=== PATIENT | female | born 1955 | race Caucasian/White ===

== ENCOUNTER → 2017-05-24 | Outpatient (CLI) | payer BC, OTHER | END | disposition home or self-care (01) | LOC: CFH 13:28 | PROVIDERS: ATTEND Nurse Practitioner Primary Care | DX: A15.9 Respiratory tuberculosis unspecified (principal); E78.2 Mixed hyperlipidemia | CPT/HCPCS: 71020 ==

== ENCOUNTER 2017-10-15 14:29 | Emergency (ER) | payer BC, OTHER ==
[~2017-10-15] VITALS: Ht 154.9 cm; Wt 62.0 kg
[2017-10-15] MEDS ORDERED: GABA300C10 PO (15:10)
[2017-10-15] MEDS ORDERED: OXYC5CAP2 PO (15:10)
[2017-10-15] MEDS ORDERED: MORPHINE SULFATE 4 MG/ML, 1ML IVPush PRN (15:30)
[2017-10-15] MEDS ORDERED: ONDANSETRON 2MG/ML, 2ML IVPush ONE (15:30)
[2017-10-15] MEDS ORDERED: SODIUM CHLORIDE FLUSH 10ML SYR IVF ONE (15:30)
[2017-10-15 15:52] LABS: BASOPHILS # (AUTO) 0.06 x10^3/uL (0-0.1); BASOPHILS % (AUTO) 1 % (0-1); EOSINOPHILS # (AUTO) 0.21 x10^3/uL (0-0.4); EOSINOPHILS % (AUTO) 3 % (1-7); LYMPHOCYTES % (AUTO) 26 % (22-44); MD NO; MEAN CORPUSCULAR HEMOGLOBIN 29.8 pg (27.0-34.8); MEAN CORPUSCULAR HGB CONC 33.7 g/dL (32.4-35.8); MEAN CORPUSCULAR VOLUME 88.4 fL (80-100); MEAN PLATELET VOLUME 8.4 fL (7.4-10.4); MONOCYTES % (AUTO) 7 % (2-9); NEUTROPHILS # (AUTO) 4.38 x10^3/uL (1.8-6.8); NEUTROPHILS % (AUTO) 63 % (42-75); PLATELET COUNT 361 x10^3/uL (130-400); RED BLOOD COUNT 5.08 x10^6/uL (3.82-5.3); RED CELL DISTRIBUTION WIDTH 13.8 % (9.6-15.2)
[2017-10-15] MEDS ORDERED: ONDANSETRON 2MG/ML, 2ML ONE (15:59)
[2017-10-15] MEDS ORDERED: MORPHINE SULFATE 4 MG/ML, 1ML ONE (15:59)
[2017-10-15 16:03] LABS: ALANINE AMINOTRANSFERASE 50 U/L (12-78); ALBUMIN 4.2 g/dL (3.4-5.0); ANION GAP 11 mmol/L (5-15); CALCIUM 9.4 mg/dL (8.5-10.1); CHLORIDE 106 mmol/L (98-107); CREATININE 0.81 mg/dL (0.55-1.02)
[2017-10-15 16:06] LABS: ALKALINE PHOSPHATASE 115 U/L (45-117); BILIRUBIN,TOTAL 0.6 mg/dL (0.2-1.0); TOTAL PROTEIN 8.1 g/dL (6.4-8.2)
[2017-10-15 16:58] LABS: MICROSCOPIC AUTO
[2017-10-15 17:44] VITALS: BP 129/70
== END 2017-10-15 18:03 | disposition home or self-care (01) ==
LOC: ED 17:55
DX: R10.13 Epigastric pain (principal)
CPT/HCPCS: 36415; 76700; 80053; 81001; 83690; 85025; 96374; 96375; 99285; J2405

== ENCOUNTER 2018-05-14 11:43 | Emergency (ER) | payer BC, OTHER ==
[~2018-05-14] VITALS: Ht 149.9 cm; Wt 64.1 kg
[~2018-05-14 11:43] MED LIST: GABA300C10 PO; OXYC5CAP2 PO
[2018-05-14 12:37] LABS: BASOPHILS # (AUTO) 0.06 x10^3/uL (0-0.1); BASOPHILS % (AUTO) 1 % (0-1); EOSINOPHILS % (AUTO) 3 % (1-7); LYMPHOCYTES # (AUTO) 1.57 x10^3/uL (1-3.4); LYMPHOCYTES % (AUTO) 20 % (22-44); MD NO; MEAN CORPUSCULAR HEMOGLOBIN 29.7 pg (27.0-34.8); MEAN CORPUSCULAR HGB CONC 33.8 g/dL (32.4-35.8); MEAN CORPUSCULAR VOLUME 87.7 fL (80-100); MEAN PLATELET VOLUME 8.4 fL (7.4-10.4); MONOCYTES # (AUTO) 0.44 x10^3/uL (0.2-0.8); MONOCYTES % (AUTO) 6 % (2-9); NEUTROPHILS # (AUTO) 5.68 x10^3/uL (1.8-6.8); NEUTROPHILS % (AUTO) 71 % (42-75); PLATELET COUNT 306 x10^3/uL (130-400); RED BLOOD COUNT 4.84 x10^6/uL (3.82-5.3); RED CELL DISTRIBUTION WIDTH 12.4 % (9.6-15.2)
[2018-05-14 12:48] LABS: ALANINE AMINOTRANSFERASE 49 U/L (12-78); ALBUMIN 3.8 g/dL (3.4-5.0); ANION GAP 8 mmol/L (5-15); CALCIUM 9.2 mg/dL (8.5-10.1); CHLORIDE 105 mmol/L (98-107)
[2018-05-14 12:50] LABS: ALKALINE PHOSPHATASE 124 U/L (45-117); BILIRUBIN,TOTAL 0.3 mg/dL (0.2-1.0); TOTAL PROTEIN 7.3 g/dL (6.4-8.2)
[2018-05-14 14:48] VITALS: BP 140/75
== END 2018-05-14 15:11 | disposition home or self-care (01) ==
LOC: ED 14:44
DX: L50.8 Other urticaria (principal); M35.00 Sjogren syndrome, unspecified
CPT/HCPCS: 36415; 80053; 85025; 99284; J7512; Q0177

== ENCOUNTER 2019-03-17 13:49 | Emergency (ER) | payer MEDICARE, BC ==
[~2019-03-17] VITALS: Ht 149.9 cm; Wt 66.0 kg
[2019-03-17 13:59] VITALS: BP 141/64
== END 2019-03-17 15:53 | disposition home or self-care (01) ==
LOC: ED 15:45
DX: L50.9 Urticaria, unspecified (principal); R06.02 Shortness of breath; R42 Dizziness and giddiness; R11.0 Nausea; G89.29 Other chronic pain
CPT/HCPCS: 36415; 80053; 85025; 93005; 96374; 99284; J1200

== ENCOUNTER 2019-08-27 16:16 | Emergency (ER) | payer MEDICARE, BC ==
[~2019-08-27] VITALS: Ht 152.4 cm; Wt 67.9 kg
[2019-08-27 16:40] VITALS: BP 138/95
--- NOTE | 2019-08-27 16:55 | NUR ---
PT AMBULATORY TO ROOM 9 W/ C/O NECK PAIN X 1 YEAR. PT STATES PAIN STARTED 1 YR AGO. DENIES ISSUES BREATHING. STATES ISSUES SWALLOWING. STATES SHE HAS SEEN 3 PCP'S AND 2 SPECIALTIES. HAS NOT SEEN ENT DR. PT STATES HER EYES ARE BEING AFFECTED. NO NEW SX BUT C/O INCREASED PAIN OVER THE PAST WEEK. PT [facility] [facility] [place].
[2019-08-27] MEDS ORDERED: LORazepam 1MG TABLET PO ONE (17:30)
[2019-08-27] MEDS ORDERED: LORazepam 1MG TABLET ONE (17:52)
[2019-08-27 18:00] LABS: BASOPHILS # (AUTO) 0.03 x10^3/uL (0-0.1); BASOPHILS % (AUTO) 0 % (0-1); EOSINOPHILS % (AUTO) 3 % (1-7); LYMPHOCYTES # (AUTO) 2.07 x10^3/uL (1-3.4); LYMPHOCYTES % (AUTO) 26 % (22-44); MD NO; MEAN CORPUSCULAR HEMOGLOBIN 29.4 pg (27.0-34.8); MEAN CORPUSCULAR HGB CONC 33.5 g/dL (32.4-35.8); MEAN CORPUSCULAR VOLUME 87.9 fL (80-100); MONOCYTES # (AUTO) 0.52 x10^3/uL (0.2-0.8); MONOCYTES % (AUTO) 7 % (2-9); NEUTROPHILS # (AUTO) 5.02 x10^3/uL (1.8-6.8); NEUTROPHILS % (AUTO) 64 % (42-75); PLATELET COUNT 273 x10^3/uL (130-400); RED BLOOD COUNT 5.17 x10^6/uL (3.82-5.3); RED CELL DISTRIBUTION WIDTH 12.8 % (9.6-15.2)
[2019-08-27 18:04] LABS: ANION GAP 6 mmol/L (5-15); CALCIUM 9.4 mg/dL (8.5-10.1); CHLORIDE 103 mmol/L (98-107); CREATININE 0.84 mg/dL (0.55-1.02)
== END 2019-08-27 18:22 | disposition home or self-care (01) ==
LOC: ED 18:10
DX: K21.9 Gastro-esophageal reflux disease without esophagitis (principal); F45.8 Other somatoform disorders; F43.9 Reaction to severe stress, unspecified; F41.1 Generalized anxiety disorder; G89.29 Other chronic pain
CPT/HCPCS: 36415; 70360; 80048; 85025; 99284